=== PATIENT | male | born 1960 | race Caucasian/White ===

== ENCOUNTER 2019-02-21 15:00 | Inpatient (IN) | payer OTHER, SELFPAY ==
[~2019-02-21] VITALS: Ht 188 cm; Wt 108.9 kg
[2019-02-21 18:08] LABS: BASOPHILS % (AUTO) 1.1 % (0.0-5.0); EOSINOPHILS % (AUTO) 3.2 % (0.0-8.0); HEMATOCRIT 44.3 % (42-54); LYMPHOCYTES % (AUTO) 35.7 % (21.0-51.0); MEAN CORPUSCULAR HEMOGLOBIN 32.2 pg (27.0-33.0); MEAN CORPUSCULAR HGB CONC 34.5 g/dL (32.0-36.0); MEAN CORPUSCULAR VOLUME 93.2 fL (79-99); MONOCYTES % (AUTO) 6.1 % (3.0-13.0); NEUTROPHILS % (AUTO) 53.9 % (40.0-77.0); NUCLEATED RED BLOOD CELLS 0.1 % (0.0-0.19); PLATELET COUNT (AUTO) 264 K/uL (130-400); RED BLOOD CELL COUNT(AUTO) 4.76 MIL/uL (4.50-6.20); RED CELL DISTRIBUTION WIDTH 14.1 % (11.0-15.5); WHITE BLOOD COUNT (AUTO) 11.4 K/uL (4.8-10.8)
[2019-02-21 18:10] LABS: APPEARANCE,URINE Clear (CLEAR); BILIRUBIN,URINE Negative (NEGATIVE); COLOR,URINE Yellow (YELLOW); GLUCOSE, URINE (UA) >=1000 mg/dL (NEGATIVE); KETONES,URINE Negative (NEGATIVE); LEUKOCYTE ESTERASE ,URINE Negative (NEGATIVE); NITRATE,URINE Negative (NEGATIVE); OCCULT BLOOD,URINE Negative (NEGATIVE); PROTEIN,URINE Negative (NEGATIVE)
[2019-02-21 18:13] LABS: INR 0.99 (0.85-1.15); PROTHROMBIN TIME 10.4 SEC (9.6-11.6)
[2019-02-21 18:16] LABS: POTASSIUM 3.7 mmol/L (3.5-5.1)
[2019-02-21 18:25] LABS: BACTERIA,URINE Rare /HPF (None Seen); MUCUS,URINE Few LPF (None Seen); RBC,URINE 0-1 /HPF (0-1); SQUAMOUS EPITHELIAL CELL,UR 0-2 /HPF (0-2)
[2019-02-21] MEDS ORDERED: GLIM4TAB5 PO (19:14)
[2019-02-21] MEDS ORDERED: EMPA10TA PO (19:21)
[2019-02-21] MEDS ORDERED: ATOR10TA69 PO (19:21)
[2019-02-21] MEDS ORDERED: VALS1TAB79 PO (19:21)
[2019-02-21] MEDS ORDERED: METF-446 PO (19:27)
[2019-02-21] MEDS ORDERED: FENO160T16 PO (19:32)
[2019-02-21] MEDS ORDERED: CHOL400D16 PO (19:32)
[2019-02-21] MEDS ORDERED: VIT1CAPS46 PO (19:32)
[2019-02-21] MEDS ORDERED: INSU100V37 SQ (19:32)
[2019-02-21] MEDS ORDERED: CYAN100022 SL (19:32)
--- NOTE | 2019-02-22 16:19 | NUR ---
DR. MUSTAFA AWARE OF ABNORMAL WBC NO NEW ORDERS, CONTINUE WITH PROCEDURE.
[2019-02-23] VITALS (22 sets, daily range): BP systolic 133–158; BP diastolic 70–89
[2019-02-23] MEDS ORDERED: SODIUM CHLORIDE 0.9% 1000ML 1,000 ML IV SCH (08:00)
[2019-02-23] MEDS: CEFOXITIN SODIUM 2 GM VIAL IVP ONE ×2 (08:00→12:50)
[2019-02-23] MEDS ORDERED: DEXAMETHASONE SOD PHOSPHATE 10MG/ML 1ML VIAL ONE (11:21)
[2019-02-23] MEDS ORDERED: LIDOCAINE PF 2% 5ML ABBOJECT ONE (11:21)
[2019-02-23] MEDS ORDERED: SUCCINYLCHOLINE 200MG/10ML SYR ONE (11:21)
[2019-02-23] MEDS ORDERED: MIDAZOLAM HCL 1 MG/ML 2ML VIAL ONE ×2 (11:22→12:38)
[2019-02-23] MEDS ORDERED: ONDANSETRON HCL 4 MG/2 ML VIAL ONE (11:22)
[2019-02-23] MEDS ORDERED: NEOSTIGMINE 5MG/5ML SYR IV ONE (11:22)
[2019-02-23] MEDS ORDERED: PROPOFOL 10 MG/ML 20ML VIAL IV ONE (11:22)
[2019-02-23] MEDS ORDERED: GLYCOPYRROLATE 1 MG/5 ML SYRINGE ONE ×2 (11:22→14:55)
[2019-02-23] MEDS ORDERED: ROCURONIUM 10MG/1ML SYR 10 MG/ML ML ONE (11:22)
[2019-02-23] MEDS ORDERED: FENTANYL CITRATE PF 50 MCG/1 ML 2ML VIAL ONE ×2 (11:23→14:08)
[2019-02-23] MEDS: CEFOXITIN SODIUM 2 GM VIAL ONE ×2 (12:45→14:50)
[2019-02-23] MEDS ORDERED: PHENYLEPHRINE HCL 10 MG/ML 1ML VIAL IV ONE (13:09)
[2019-02-23] MEDS ORDERED: EPHEDRINE SULFATE 50 MG/ML AMPULE ONE (14:46)
[2019-02-23] MEDS ORDERED: ONDANSETRON HCL 4 MG/2 ML VIAL IVP PRN ×2 (15:00→20:45)
[2019-02-23] MEDS ORDERED: DEXTROSE 50%-WATER 50 ML DISP.SYRIN IV ONE (15:40)
[2019-02-23] MEDS: SODIUM CHLORIDE 0.9% 1000ML 1,000 ML IV SCH (17:47)
[2019-02-23] MEDS: CEFOXITIN SODIUM 1 GM VIAL IVP SCH (18:43)
[2019-02-23] MEDS ORDERED: NALOXONE HCL 0.4 MG/1 ML ML IVP PRN ×3 (20:45)
[2019-02-23] MEDS ORDERED: DiphenhydrAMINE HCL 50 MG/ML VIAL IVP PRN (20:45)
[2019-02-23] MEDS ORDERED: EPHEDRINE SULFATE 50 MG/ML AMPULE IVP PRN (20:45)
[2019-02-24] VITALS: BP 108/69
[2019-02-24] MEDS: CEFOXITIN SODIUM 1 GM VIAL IVP SCH ×3 (00:06→13:01)
[2019-02-24] MEDS: SODIUM CHLORIDE 0.9% 1000ML 1,000 ML IV SCH ×2 (00:06→11:12)
[2019-02-24] MEDS: ROPIVACAINE 0.2% 100ML VIAL 100 ML EP SCH ×2 (01:38→20:56)
[2019-02-24 04:00] VITALS: BP 114/70
[2019-02-24 04:54] LABS: BASOPHILS % (AUTO) 0.2 % (0.0-5.0); LYMPHOCYTES % (AUTO) 8.7 % (21.0-51.0); MEAN CORPUSCULAR HEMOGLOBIN 32.5 pg (27.0-33.0); MEAN CORPUSCULAR HGB CONC 34.7 g/dL (32.0-36.0); MEAN CORPUSCULAR VOLUME 93.5 fL (79-99); MONOCYTES % (AUTO) 5.8 % (3.0-13.0); NEUTROPHILS % (AUTO) 85.3 % (40.0-77.0); PLATELET COUNT (AUTO) 249 K/uL (130-400); RED BLOOD CELL COUNT(AUTO) 4.28 MIL/uL (4.50-6.20); RED CELL DISTRIBUTION WIDTH 14.2 % (11.0-15.5); WHITE BLOOD COUNT (AUTO) 15.6 K/uL (4.8-10.8)
[2019-02-24 05:19] LABS: CREATININE 1.3 mg/dL (0.5-1.5); POTASSIUM 3.8 mmol/L (3.5-5.1)
[2019-02-24 07:00] VITALS: BP 107/63
--- NOTE | 2019-02-24 10:42 | NUR ---
AMBULATION Order for ambulation but patient on epidural. Contacted Dr. Mack. Received orders. Syopped epidural for 2-4 hours, then will ambulate assited and on fall precautions and restart epidural analgesia after ambulation. Patient and updated and verbalized and demonstrated understanding.
[2019-02-24 12:00] VITALS: BP 127/73
--- NOTE | 2019-02-24 13:30 | NUR ---
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 CM TO FOLLOW, DR MUSTAFA STATES DC HERNESTO OR MON W/O DC NEEDS Addendum: 02/24/19 at 2015 by MISTI LAWLER RN CM Amended: Links added.
[2019-02-24 16:00] VITALS: BP 171/90
--- NOTE | 2019-02-24 17:44 | NUR ---
UPDATE Patient was encouraged to ambulat again. Stated he rahter wait at this time but stated he wanted some pain medication. His epidural was restarted. Denied any other needs. COntinues receiving intravenous fluids NS at 100mL/hr and continues on LIWS draining green, thickish fluid in small amounts.
[2019-02-24 19:20] VITALS: BP 151/87
[2019-02-25] VITALS (7 sets, daily range): BP systolic 132–148; BP diastolic 78–88
[2019-02-25] MEDS: SODIUM CHLORIDE 0.9% 1000ML 1,000 ML IV SCH ×3 (01:10→19:19)
[2019-02-25 04:18] LABS: BASOPHILS % (AUTO) 0.6 % (0.0-5.0); EOSINOPHILS % (AUTO) 0.5 % (0.0-8.0); HEMATOCRIT 39.5 % (42-54); LYMPHOCYTES % (AUTO) 17.1 % (21.0-51.0); MEAN CORPUSCULAR HEMOGLOBIN 32.9 pg (27.0-33.0); MEAN CORPUSCULAR HGB CONC 35.4 g/dL (32.0-36.0); MONOCYTES % (AUTO) 6.8 % (3.0-13.0); PLATELET COUNT (AUTO) 223 K/uL (130-400); RED BLOOD CELL COUNT(AUTO) 4.25 MIL/uL (4.50-6.20); RED CELL DISTRIBUTION WIDTH 14.3 % (11.0-15.5); WHITE BLOOD COUNT (AUTO) 13.5 K/uL (4.8-10.8)
[2019-02-25 04:41] LABS: POTASSIUM 3.4 mmol/L (3.5-5.1)
[2019-02-25] MEDS: INSULIN HUMULIN R 100 UNIT/ML 3ML SQ PRN (05:41)
--- NOTE | 2019-02-25 08:21 | NUR ---
PATIENT UPDATE Continues with the PCEA Ropivacaine infusion at 8ml per hour, pt comfortable, denies any post operative discomfort. With an ngt to the rt nare connected to low intermittent suction, greenish gastric drainage noted. Patient burping, stated that he's passing gas already. Abdominal incision clean and dry, yvonne intact. Jimenez catheter patent draining to adequate amount of urine output. Tolerating ice chips, no nausea and vomiting. Dawson scd's on for vte protocol. Weaned off from the O2 t 2l per nasal cannula, tolerated well, o2 sat 96-98 % at room air.
--- NOTE | 2019-02-25 11:15 | NUR ---
NGT Removed NGT with no problems as ordered by Dr. Talley. Patient tolerated well.
[2019-02-25] MEDS: ROPIVACAINE 0.2% 100ML VIAL 100 ML EP SCH (19:44)
[2019-02-26] MEDS: SODIUM CHLORIDE 0.9% 1000ML 1,000 ML IV SCH (01:00)
[2019-02-26 03:00] VITALS: BP 149/79
[2019-02-26] MEDS: INSULIN HUMULIN R 100 UNIT/ML 3ML SQ PRN (06:24)
[2019-02-26 06:35] LABS: BASOPHILS % (AUTO) 0.6 % (0.0-5.0); EOSINOPHILS % (AUTO) 0.7 % (0.0-8.0); LYMPHOCYTES % (AUTO) 13.8 % (21.0-51.0); MEAN CORPUSCULAR HEMOGLOBIN 32.6 pg (27.0-33.0); MEAN CORPUSCULAR VOLUME 93.1 fL (79-99); MONOCYTES % (AUTO) 6.9 % (3.0-13.0); PLATELET COUNT (AUTO) 234 K/uL (130-400); RED BLOOD CELL COUNT(AUTO) 4.08 MIL/uL (4.50-6.20); RED CELL DISTRIBUTION WIDTH 13.7 % (11.0-15.5); WHITE BLOOD COUNT (AUTO) 12.9 K/uL (4.8-10.8)
[2019-02-26 06:42] LABS: POTASSIUM 3.4 mmol/L (3.5-5.1)
[2019-02-26 08:00] VITALS: BP 149/77
[2019-02-26 11:00] VITALS: BP 159/84
--- NOTE | 2019-02-26 13:37 | NUR ---
ANESTHESIA KENNY Senior was called and he stated he will be coming to pull epidural catheter. Patient updated.
[2019-02-26 16:00] VITALS: BP 146/78
--- NOTE | 2019-02-26 18:45 | NUR ---
EPIDURAL/PO INTAKE/IV FLUIDS Patient had visit from anesthesiologist and epidural line was discontinued. Sit at back where epidural was is C/D/I. No dressing on. Patient has also been tolerating his PO intake of clear liquids well. No issues. His IV fluids were decreased to 50mL/hr as ordered by Dr. Talley and dose adjusted in IV pump. Contiues receiving NS at 50mL/hr to right hand # 22g without any issues. Comfortable in bed. Has been ambulating a few times accompanied by staff or . Patient is steady in his feet. Recovering uneventfully. Midline incision with approximated midline and yvonne in place; open to air Intact midline incision. Patient has had a bowel movement, slightly loose. No nausea, no emesis.
[2019-02-26 20:28] VITALS: BP 152/80
[2019-02-26 23:17] VITALS: BP 142/73
[2019-02-27] MEDS: SODIUM CHLORIDE 0.9% 1000ML 1,000 ML IV SCH ×2 (01:54→04:48)
[2019-02-27] MEDS: INSULIN HUMULIN R 100 UNIT/ML 3ML SQ PRN ×2 (02:02→05:17)
[2019-02-27 03:40] VITALS: BP 139/75
--- NOTE | 2019-02-27 05:32 | NUR ---
HIRA LEUNG Explained to pt,julianna gibbons removed per nguyen Rosenbaum RN. Addendum: 02/27/19 at 0532 by ALEX ANGELES RN RN Amended: Links added.
[2019-02-27 08:00] VITALS: BP 150/77
[2019-02-27 12:00] VITALS: BP 136/70
--- NOTE | 2019-02-27 13:11 | NUR ---
POTASSIUM LEVEL 3.[address] MUSTAFA ABOUT POTASSIUM LEVEL OF 3.4, NO ORDERS GIVEN FOR POTASSIUM. DR MUSTAFA DID HOWEVER ADVANCE DIET TO REGULAR AND STATED POSSIBLE DISCHARGE IN AM.
[2019-02-27 16:00] VITALS: BP 150/83
[2019-02-27 19:44] VITALS: BP 162/96
[2019-02-27 23:47] VITALS: BP 141/75
[2019-02-28 04:32] VITALS: BP 144/84
[2019-02-28 07:00] VITALS: BP 163/88
--- NOTE | 2019-02-28 11:30 | NUR ---
Patient discharged in stable condition. Patient/ given discharge instruction on incision care. Call MD if any redness, oozing, foul odor or fever/chills. DO not take baths or submerge underwater. May shower but pat incision dry and well. May take OTC pain relievers as per Dr. Talley. Continue your medications as prescribed by your doctor. F/U with Dr. Talley on 03/03/19 @ 5403. IF chest pain, SOB or changes in mental status call 911. No other
== END 2019-02-28 11:55 | disposition home or self-care (01) | DRG 331 ==
LOC: EDSTATUS 15:00 → DAHIP 02-23 08:28 → 3DH 02-23 17:06
PROVIDERS: ADMIT Surgery; ATTEND Surgery
PROC: 0DBF0ZZ Excision of Right Large Intestine, Open Approach (ICD-10-PCS; principal; 2019-02-23 12:38)
DX: K63.89 Other specified diseases of intestine (principal); E11.9 Type 2 diabetes mellitus without complications; I10 Essential (primary) hypertension; Z79.4 Long term (current) use of insulin; Z88.0 Allergy status to penicillin
CPT/HCPCS: 36415; 80048; 81001; 82948; 85025; 85610; 88307; 93005; 97039; A4344; G0378; J0330; J0694; J1100; J2001; J2250; J2370; J2405; J2704; J2710; J2795; J3010; J3490; J7030; J7070